=== PATIENT | female | born 1995 | race Caucasian/White ===

== ENCOUNTER 2022-08-30 08:30 | Outpatient (RCR) | payer MEDICAID, SELFPAY | END 2022-11-05 13:48 | disposition home or self-care (01) | DX: R10.2 Pelvic and perineal pain (principal); Z51.89 Encounter for other specified aftercare | CPT/HCPCS: 97110; 97140; 97162 ==

== ENCOUNTER 2023-06-25 17:11 | Outpatient (CLI) | payer MEDICAID, SELFPAY | END 2023-06-25 17:12 | disposition home or self-care (01) | LOC: NFLDREF 06-26 07:18 | PROVIDERS: PCP Registered Nurse; Visit Provider Registered Nurse | DX: Z34.82 Encounter for supervision of other normal pregnancy, second trimester (principal) | CPT/HCPCS: 87086 ==

== ENCOUNTER 2023-06-27 15:38 | Outpatient (CLI) | payer MEDICAID, SELFPAY ==
--- NOTE | 2023-06-27 16:00 | US_ITS ---
Patient: SHAYNE AMAYA Facility:?[facility] Patient ID:?[id number] Site Patient ID:?[id number]. Site :?[id number] Study:?US-OB Pelvis OB ANATOMY-06/27/2023 5:01:06 PM Ordering Physician:?YUDITH MAZARIEGOS CNP Final Report: HISTORY: anatomic survey. COMPARISON: None available of this gestation. TECHNIQUE: Ultrasound examination of the is performed with transabdominal technique. FINDINGS: A single intrauterine gestation is seen in cephalic presentation with regular cardiac activity at 152 beats per minute. The placenta is anterior and to the right and is free of the cervical os. The placental grade is 0 and the amniotic fluid volume is normal. Single deepest vertical pocket: Normal at 6.8 cm. Cervical length normal at 4.9 centimeters. BPD: 5.5 cm 22 weeks 5 days HC: 19.7 cm 22 weeks 6 days AC: 18.3 cm 23 weeks 1 day FL: 3.7 cm 21 weeks 4 days The estimated age by ultrasound is 22 weeks 2 days, with an estimated date of delivery of 10/29/2023. This correlates relatively well with the clinical age of 20 weeks 4 days. The ultrasound measurements are internally consistent, suggesting that the clinical age may be inaccurate. The ultrasound ratios are normal. The estimated weight is 500 grams which is greater than the 97th percentile based on the clinical dates. The anatomic survey demonstrates normal appearing intracranial structures with a normal septum pellucidum and normal cerebellum. The nuchal thickness is normal at 5 mm, and the lateral ventricle is normal in diameter at 4 mm. The upper lip, 4 chamber heart, left and right ventricular outflow tracts, diaphragm, stomach, cord insertion site, 3-vessel cord, kidneys, bladder and spine are normal in appearance. IMPRESSION: 1. Single intrauterine gestation in cephalic presentation with regular cardiac activity. 2. Estimated gestational age is 22 weeks 2 days. 3. Estimated weight is 500 grams which is greater than the 97th percentile based on the clinical dates. Dictated by Mick Chiang MD @ 06/30/2023 10:57:16 AM Signed by:?Mick Chiang MD @06/30/2023 10:57:16 AM (Electronic Signature)
== END 2023-06-27 15:39 | disposition home or self-care (01) ==
LOC: US 15:38
PROVIDERS: Visit Provider Registered Nurse
DX: Z34.92 Encounter for supervision of normal pregnancy, unspecified, second trimester (principal); Z3A.22 22 weeks gestation of pregnancy
CPT/HCPCS: 76805

== ENCOUNTER 2023-08-20 08:00 | Outpatient (CLI) | payer MEDICAID, SELFPAY | END 2023-08-20 08:01 | disposition home or self-care (01) | LOC: NFLDREF 09-09 16:43 | PROVIDERS: Visit Provider Advanced Practice Midwife | DX: Z34.92 Encounter for supervision of normal pregnancy, unspecified, second trimester (principal) | CPT/HCPCS: 86592; 86762 ==

== ENCOUNTER 2023-09-17 13:41 | Outpatient (CLI) | payer MEDICAID, SELFPAY ==
--- NOTE | 2023-09-17 14:00 | CRLHL7_ITS ---
For Patients: As a result of the Century Cures Act, medical imaging exams and procedure reports are released immediately into your electronic medical record. You may view this report before your referring provider. If you have questions, please contact your health care provider. OB ULTRASOUND 09/17/2023 CLINICAL HISTORY: Growth, history of macrosomia. RAFAEL by LMP: 11/10/2023. GA: 32 weeks 2 days. COMPARISON: 06/27/23, 04/30/23, 04/24/23. TECHNIQUE: Transabdominal. FINDINGS: Single gestation. Cervix: Not visualized. Position: Vertex. Amniotic Fluid: 7.2 cm. Placenta: TA Placenta Position: Anterior, right wall. Dopplers: Heart Rate: 150 bpm. BIOMETRY: BPD: 8.8 cm, 35 weeks 3 days. >97% HC: 31.6 cm, 35 weeks 3 days. 90% AC: 33.3 cm, 37 weeks 2 days. 97% FL: 6.9 cm, 35 weeks 4 days. >97% EFW: 2933 grams, 6 lb, 7 oz. Age by this US: 36 weeks 0 days. RAFAEL by this US: 10/15/2023. Percentile by RAFAEL: >97% IMPRESSION: Estimated weight is greater than 97th percentile. Víctor Regalado M.D. Body/Diagnostic Radiologist [email or web address] Transcribed: 1:19 pm DW/Dictated by: Víctor Regalado MD @ 09/18/2023 10:16:00 AM (Electronically Signed)
== END 2023-09-17 13:42 | disposition home or self-care (01) ==
LOC: US 13:42
PROVIDERS: Visit Provider Advanced Practice Midwife
DX: O36.63X0 Maternal care for excessive fetal growth, third trimester, not applicable or unspecified (principal); Z3A.32 32 weeks gestation of pregnancy
CPT/HCPCS: 76816

== ENCOUNTER 2023-10-02 10:26 | Outpatient (CLI) | payer MEDICAID, SELFPAY ==
[2023-10-03 13:36] LABS: Strep B DNA Probe Negative (Negative)
[2023-10-03 13:59] LABS: Strep B Susceptibility Needed? No
== END 2023-10-02 10:27 | disposition home or self-care (01) ==
PROVIDERS: Visit Provider Advanced Practice Midwife
DX: Z34.93 Encounter for supervision of normal pregnancy, unspecified, third trimester (principal); Z3A.34 34 weeks gestation of pregnancy; R82.90 Unspecified abnormal findings in urine
CPT/HCPCS: 82728; 87081; 87086; 87653

== ENCOUNTER 2023-10-07 10:59 | Outpatient (CLI) | payer MEDICAID, SELFPAY ==
[2023-10-07 11:04] VITALS: BP 105/60; PULSE 85; RESP 16; TEMP 36.6
[2023-10-07 11:43] LABS: Appearance Urine Clear (Clear); Bilirubin Urine Negative (Negative); Blood Urine Negative (Negative); Color Urine Yellow (Yellow); Glucose Urine 1+ (Negative); Ketones Urine Negative (Negative); Leukocyte Esterase Urine 1+ (Negative); Nitrite Urine Negative (Negative); Protein Urine Negative (Negative); Specific Gravity Urine 1.025 (1.000-1.030); Urobilinogen Urine 0.2 (0.2-1.0)
[2023-10-07 11:49] LABS: Amnisure Rom* Negative
[2023-10-07 11:53] LABS: Clue Cells No Clue Cells Seen (None Seen); Trichomonas No Trichomonas Seen (None Seen); Yeast No Yeast Seen (None Seen)
[2023-10-07 12:04] LABS: Bacteria Urine Many; RBC Urine 0-2 (0-2); Squamous Epithelial Cell Urine Moderate (None-Few)
--- NOTE | 2023-10-07 12:44 | PC.OBNST ---
NST Note NST Note Start: 10/07/23 11:07 Freq: ONCE Status: Active Protocol: Document 10/07/23 12:42 ARIES (Rec: 10/07/23 12:43 ARIES [id number]) NST Note 5 Para (# of births) 4 EDC 11/10/23 Gestational Age In Weeks & Days 35 Weeks & 1 Days High Risk Factors History of Labor/ Delivery Patient Presented with Complaint(s) of Pain If Pain, describe location Pelvic pain Reactive Yes Appropriate for Gestational Age Yes RN Yfn Li RN Date 10/07/23 Reactive Yes Appropriate for Gestational Age Yes RICK Chow RN Date 10/07/23 OB NST charge Yes Complete NST Note via Write Note Yes The provider's electronic signature indicates the NST is reactive/appropriate for gestational age. *Note to provider: If an addendum is required, open the patient's chart and click on the note under the Nurse/Allied Health tab.
--- NOTE | 2023-10-07 12:55 | P.OBO_ITS ---
OB Outpatient HPI History of Present Illness History of Present Illness: Romel is a 28 year old at 35.1 weeks gestation by LMP with an RAFAEL of 11/10/2023. She presents to triage with concerns for lower pubic pain that started a few days ago but has been progressively more painful since 2 am this morning. She feels it worse when she is up and moving but it has been hard to move in bed or get up. She has also noted some increased discharge but denies any bleeding. She still has irregular contractions but those are more tolerable today. She does wear an abdominal binder if she is up moving around a lot. She uses the birthing ball and has 4 other children at home keeping her busy. OB PROBLEM LIST G 5 P3104 at tx at 20 2/7 weeks gestation from [facility] 1. 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 Recommend FOB be tested. NIPT testing with [facility], viewed on pt phone all WNL FOB is not carrier. 2. Depression and Anxiety. Took medication in past. Stable without medication or therapist at OB transfer visit. 3. History of labor. Fourth baby delivered at 36 weeks 2 days. Patient believes that her dating may have been off. Per delivery note, dating was based on ultrasound. (doesn't list how far along she was at time of dating US). Pt reports her dates were changed almost 4 weeks by her OB. 4. History of anorexia. Patient states this was an issue during her 3rd . Denies any current concerns with disordered eating habits. 5. UTI in . Neg culture at tx visit. 6. H/o macrosomia. Fourth baby was 9 lb 5 oz at 36 weeks 2 days. Consider growth US in 3rd trimester at 32-36 weeks. FAS: growth >97%. Growth US: 32 wks >97%, 36 wks: 7. Anemia in 10.5 at 28 weeks, oral iron supplement recommended TDAP: 09/03/2023 Covid: Not vaccinated. Recommended, declined. Previous medical records: Estimated date of delivery is 11/10/2023 determined by LMP consistent with 6 and 8 week ultrasound. Blood type O positive, antibody screen negative, hemoglobin 13.4, platelets 309, rubella: no results (Immune by our labs), RPR nonreactive, hepatitis-B nonreactive, HIV negative, Chlamydia gonorrhea both negative, urine culture enterococcus faecalis, hepatitis-C negative Pap smear 10/29/2022 negative for intraepithelial lesion or malignancy Spinal muscular atrophy carrier testing: Positive Ultrasound 04/01/2023: Single viable intrauterine gestation with crown-rump length measurements consistent with LMP and confirms EDC of 11/10/2023. Ultrasound 04/24/2023: Single live intrauterine with CRL of 5.03 corresponding to 11 weeks 3 days. Cardiac activity present 173 beats per minute. Appropriate growth since last ultrasound. Ultrasound 04/30/2023: Single IUP at 12 weeks 2 days. Appropriate growth since last ultrasound. Normal cardiac activity. Ovaries normal in appearance and size. Normal blood flow to left ovary. Baby moving naturally: Yes Bleeding: No Contractions: Yes Leaking fluid: No (Increased but not watery) Discharge: Yes Heartburn: No Back pain: No Meds Home Medications and Allergies Home Medications ?Medication ?Instructions ?Recorded ?Confirmed ?Type docosahexaenoic acid 200 mg mg PO 06/25/23 10/02/23 History capsule ( DHA) Allergies Allergy/AdvReac Type Severity Reaction Status Date / Time No Known Drug Allergies Allergy Verified 10/07/23 11:12 COUNT INCLUDES THE [facility] Medical History (Updated 10/07/23 @ 16:55 by Kaylah Hernandez CNM) labor in third trimester with delivery ?O60.14X0 - labor third trimester with delivery third trimester, not applicable or unspecified (ICD-10) Social History (Updated 06/25/23 @ 16:05 by Oralia Galeana MA) What is your current living situation?: I presently have a place to live Problems where you live: no known problems In the past 12 months, utilities in danger of being shut off: no In past 12 months, lack of transportation kept you from medical appts, meetings, work, or getting things needed for daily living: no In the past 12 mos, have been you worried that your food would run out before you had money to buy more?: never true In the past 12 mos, the food you bought just didn't last and you didn't have money to buy more?: never true Smoking Status: Never smoker How often does anyone, including family, friends and others, physically hurt you : never How often does anyone, including family, friends and others, insult or talk down to you: never How often does anyone, including family, friends and others, threaten you with harm: never How often does anyone, including family, friends and others, scream or curse at you: never Little interest or pleasure in doing things: not at all Feeling down, depressed, or hopeless: not at all History History 5 Elective abortions Para 4 Spontaneous abortions Hx # Term Pregnancies Ectopic pregnancies Hx # Pregnancies Multiple births Number of Living Children Past Pregnancies Del. Date GA/Weeks Outcome Route wt Inf Gender Labor Lgth Anesthesia Location Provider [facility] 03/23/13 39 live - full term 8 lb 11 oz Male [place] labor 07/09/16 39 live - full term 8 lb 13 oz Male [place] 01/17/19 37 live - full term 7 lb 9 oz Male epidural [facility] 10/07/21 36 live - 9 lb 5 oz Male [facility] labor Delivery Date: 10/07/21 Last Updated by: Kaylah Hernandez CNM GBS + OB - H&P: Exam Physical Exam Vital signs: Temp Pulse Resp BP 97.8 F 85 16 105/60 10/07/23 11:04 10/07/23 11:04 10/07/23 11:04 10/07/23 11:04 Labs Labs Laboratory Tests 10/07/23 10/07/23 10/07/23 Range/Units 11:33 11:30 11:29 Urine Color Yellow (Yellow) Urine Appearance Clear (Clear) Urine pH 6.0 (5.0-8.5) Ur Specific [place] 1.025 (1.000-1.030) Urine Protein Negative (Negative) Urine Glucose (UA) 1+ A (Negative) Urine Ketones Negative (Negative) Urine Blood Negative (Negative) Urine Nitrite Negative (Negative) Urine Bilirubin Negative (Negative) Urine Urobilinogen 0.2 (0.2-1.0) Ur Leukocyte Esterase 1+ A (Negative) Urine RBC 0-2 (0-2) Urine WBC 5-10 A (0-5) Ur Squamous Epith Cells Moderate A (None-Few) Urine Bacteria Many A (None) Membrane Rupture Negative Vaginal Trichomonas No Trichomonas Seen (None Seen) Vaginal Yeast No Yeast Seen (None Seen) Vaginal Clue Cells No Clue Cells Seen (None Seen) Assessment and Plan Assessment and plan (1) Pain in symphysis pubis during : Status: Acute (2) 35 weeks gestation of : Status: Acute Plan at 35 1/7 weeks gestation Symphysis Pubis pain Reviewed causes of symphysis pubis pain and management. Encouraged to wear abdominal binder when able, use pillow support in bed, turn slowly and support abdomen, heat therapy, cold therapy, tylenol as needed, tub soaks, and rest. Avoid squatting or birthing ball for a period to see if this helps alleviate pain on symphysis pubis. Avoid activities that make pain worse. Wet prep negative. Reviewed UA is similar to last week in clinic. Will call and treat if culture returns with infection. Reviewed s/sx of labor and when to return for care. Has return OB tomorrow. She may cancel depending on how she is feeling in the morning. She is aware to return next week if she does. Discharge home.
== END 2023-10-07 12:41 | disposition home or self-care (01) ==
LOC: OB OUT 10:59 → OB 11:04
PROVIDERS: Visit Provider Advanced Practice Midwife
DX: O09.213 Supervision of pregnancy with history of pre-term labor, third trimester (principal); O99.891 Other specified diseases and conditions complicating pregnancy; R10.2 Pelvic and perineal pain; Z3A.35 35 weeks gestation of pregnancy
CPT/HCPCS: 59025; 81001; 81003; 84112; 87086; 87210; G0463

== ENCOUNTER 2023-10-11 21:57 | Outpatient (CLI) | payer MEDICAID, SELFPAY ==
[2023-10-11 22:08] VITALS: BP 118/60; PULSE 90; PULSE 95; O2SAT 98
--- NOTE | 2023-10-12 01:31 | PC.OBNST ---
NST Note NST Note Start: 10/11/23 22:13 Freq: ONCE Status: Active Protocol: Document 10/12/23 01:10 KERRY (Rec: 10/12/23 01:31 KERRY [id number]) NST Note 5 Para (# of births) 4 EDC 11/10/23 Gestational Age In Weeks & Days 35 Weeks & 6 Days High Risk Factors History of Labor/ Delivery Patient Presented with Complaint(s) of Contractions/cramping Reactive Yes Appropriate for Gestational Age Yes RICK Arizmendi RNC Date 10/12/23 Reactive Yes Appropriate for Gestational Age Yes RICK Lomas RN Date 10/12/23 OB NST charge Yes Complete NST Note via Write Note Yes The provider's electronic signature indicates the NST is reactive/appropriate for gestational age. *Note to provider: If an addendum is required, open the patient's chart and click on the note under the Nurse/Allied Health tab.
== END 2023-10-12 01:10 | disposition home or self-care (01) ==
LOC: OB OUT 21:57 → OB 21:58
PROVIDERS: Visit Provider Obstetrics & Gynecology
DX: O47.03 False labor before 37 completed weeks of gestation, third trimester (principal); Z3A.35 35 weeks gestation of pregnancy
CPT/HCPCS: 59025; G0463

== ENCOUNTER 2023-10-14 08:42 | Outpatient (CLI) | payer MEDICAID, SELFPAY ==
--- NOTE | 2023-10-14 09:15 | US_ITS ---
Patient: SHAYNE AMAYA Facility:?[facility] Patient ID:?[id number] Site Patient ID:?[id number]. Site :?1997 Study:?US-OB Pelvis growth-10/14/2023 9:21:53 AM Ordering Physician:Sathish Pham Final Report: INDICATION: Third trimester scan, evaluate growth. COMPARISON: 09/17/2023 TECHNIQUE: Real time tamez scale imaging of the fetus was performed. FINDINGS: Sonographic imaging demonstrates a single living intrauterine gestation. Fetus demonstrates a regular cardiac rate of 159 beats per minute. Fetus has a vertex position. The placenta lies anteriorly. Amniotic fluid volume appears normal and there is a single deepest vertical pocket: 7.6 cm. The estimated weight is 3748gm which lies at the greater than 97th %. On the prior OB ultrasound exam dated 09/17/2023 the estimated weight was at the greater than 97th%. BPD and HC greater than 97th percentile. HC 93rd percentile. FL 80th percentile. The HC/AC ratio measures 0.95 range (0.87-1.06). IMPRESSION: Sonographic gestational age 39 weeks 1 day and sonographic due date of 10/20/2023. Sonographic age 3 weeks ahead of the clinical age. Estimated weight greater than 97th percentile. Abdominal circumference and BPP greater than 97th percentile. Dictated by Nathan Soares MD @ 10/14/2023 11:09:06 AM Signed by:?Nathan Soares MD @10/14/2023 11:09:06 AM (Electronic Signature)
== END 2023-10-14 08:43 | disposition home or self-care (01) ==
LOC: US 08:42
PROVIDERS: Visit Provider Advanced Practice Midwife
DX: Z34.93 Encounter for supervision of normal pregnancy, unspecified, third trimester (principal); Z3A.39 39 weeks gestation of pregnancy
CPT/HCPCS: 76816

== ENCOUNTER 2023-10-22 10:50 | Outpatient (CLI) | payer MEDICAID, SELFPAY | END 2023-10-22 10:51 | disposition home or self-care (01) | LOC: NFLDREF 10-23 10:39 | PROVIDERS: Visit Provider Midwife | DX: O99.013 Anemia complicating pregnancy, third trimester (principal); Z3A.37 37 weeks gestation of pregnancy | CPT/HCPCS: 82728 ==

== ENCOUNTER 2023-11-04 09:52 | Inpatient (IN) | payer MEDICAID, SELFPAY ==
[2023-11-04] VITALS (14 sets, daily range): BP systolic 107–123; BP diastolic 54–70; PULSE 74–96; TEMP 36.4–36.8; BMI 34.6
--- NOTE | 2023-11-04 12:17 | P.LDBA_ITS ---
Subjective History of Present Illness Narrative: Romel is a 28 yo at 39 1/7 weeks gestation being admitted to Labor and Delivery for elective induction of labor. She reports she has been having contrations on and off for the last week but isn't feeling many today. She denies any bleeding or leaking of fluid. She is supported in labor by her partner, Alexandra. Her full history and physical was dictated by JIM Patterson on 10/14/2023. Please see this for details. Specific Issues/Plans G 5 P3104 at tx at 20 2/7 weeks gestation from [place]. H&P 10/14/23 Jack Thomas CNM IOL 11/03 at 0700. [place] consent signed 10/22/2023 1. 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 Recommend FOB be tested. NIPT testing with [facility], viewed on pt phone all WNL FOB is not carrier. 2. Depression and Anxiety. Took medication in past. Stable without medication or therapist at OB transfer visit. 3. History of labor. Fourth baby delivered at 36 weeks 2 days. Patient believes that her dating may have been off. Per delivery note, dating was based on ultrasound. (doesn't list how far along she was at time of dating US). Pt reports her dates were changed almost 4 weeks by her OB. 4. History of anorexia. Patient states this was an issue during her 3rd . Denies any current concerns with disordered eating habits. 5. UTI in . Neg culture at tx visit. 6. H/o macrosomia. Fourth baby was 9 lb 5 oz at 36 weeks 2 days. Consider growth US in 3rd trimester at 32-36 weeks. FAS: growth >97%. Growth US: 32 wks >97%, 36 wks: >97% 7. Anemia in 10.5 at 28 weeks, oral iron supplement recommended 10/22/2023 Hgb: 10.7 TDAP: 09/03/2023 Covid: Not vaccinated. Recommended, declined. Previous medical records: Estimated date of delivery is 11/10/2023 determined by LMP consistent with 6 and 8 week ultrasound. Blood type O positive, antibody screen negative, hemoglobin 13.4, platelets 309, rubella: no results (Immune by our labs), RPR nonreactive, hepatitis-B nonreact kortney, HIV negative, Chlamydia gonorrhea both negative, urine culture enterococcus faecalis, hepatitis-C negative Pap smear 10/29/2022 negative for intraepithelial lesion or malignancy Spinal muscular atrophy carrier testing: Positive Ultrasound 04/01/2023: Single viable intrauterine gestation with crown-rump length measurements consistent with LMP and confirms EDC of 11/10/2023. Ultrasound 04/24/2023: Single live intrauterine with CRL of 5.03 corresponding to 11 weeks 3 days. Cardiac activity present 173 beats per minute. Appropriate growth since last ultrasound. Ultrasound 04/30/2023: Single IUP at 12 weeks 2 days. Appropriate growth since last ultrasound. Normal cardiac activity. Ovaries normal in appearance and size. Normal blood flow to left ovary. OB - Problem Based A/P Additional Plan (1) Encounter for elective induction of labor: Status: Acute (2) 39 weeks gestation of : Status: Acute (3) Anemia affecting in third trimester: Status: Acute (4) History of macrosomia in in prior , currently : Status: Acute (5) Depression: Status: Acute Plan ASSESSMENT:? 28 yo at 39.1 weeks gestation? complicated by:?SMA carrier, Depression/Anxiety, hx of labor, hx of anorexia, UTI in , Hx of macrosomia, Anemia Labor type: Induced? Category 1 FHR pattern.?? Labor complicated by: none? GBS negative? ? PLAN:? 1. Routine intrapartum cares as ordered. Discussed induction methods based on her cervical exam including pitocin versus AROM. We reviewed risk/benefits of each. If she desires AROM first and she is not progressing we can start Pitocin at any point. We discussed I would not rupture if I did not feel this was a safe option. This is what she prefers. AROM with clear fluid. 2. Monitoring per policy, intermittent unless on pitocin? 3. Planning unmedicated . Desires water . Consent signed. Hep C negative. Candidate for analgesia of choice.?? 4. Patient encouraged to reposition and ambulate to promote physiologic labor and .? 5. Anticipate ? Delivery/Labor/Induction Plan Plan: induction Induction method: AROM OB Result Labs Blood Type: O (+) positive GBS Status: negative OB Exam Physical Exam Vital signs: Temperature 98.3 F 11/04/23 13:27 Pulse Rate 96 11/04/23 13:27 Blood Pressure 107/54 L 08/12/24 13:27 Blood Pressure Mean 74 11/04/23 13:27 Narrative: Vitals Reviewed Constitutional:? Alert and oriented x3 HEENT:? Normocephalic, atraumatic Neck:? Supple Lungs:? Clear to auscultation bilaterally Heart:? Regular rate and rhythm, no murmur, rub or gallop Abdomen:? Soft, nontender, and gravid. Vertex by Michael's, confirmed with cervical exam. Extremities:? No edema or erythema Cervix: 5 cm/70%/-2 station/vertex; Arom with clear fluid NST: 150 bpm/moderate variability/15x15 accelerations/no decelerations/contractions rarely Detailed Labor and Delivery Exam Patient Gravid: Yes
--- NOTE | 2023-11-04 18:41 | PM.OBPNL ---
Subjective Date Seen: 11/04/23 Narrative: Romel is a at 39.1 weeks gestation here for elective IOL. She is starting to feel some pressure and desires to get into the tub. She is supported in labor by her partner. Objective Exam: Objective: Constitutional: Alert and oriented x3, mild distress, coping well Vital signs stable, see nurse documentation Abdomen: gravid, contractions palpate strong with contractions and soft between Cervix: 8-9 cm/90%/0 station/vertex Intermittent Auscultation: FHR 150's Vital Signs: Last Vital Signs Temp 98.1 F 11/04/23 18:06 Pulse 86 11/04/23 18:07 BP 119/66 11/04/23 18:07 Plan Plan: 28 yo at 39.1 weeks gestation? complicated by:?SMA carrier, Depression/Anxiety, hx of labor, hx of anorexia, UTI in , Hx of macrosomia, Anemia Labor type: Induced, Active labor Labor complicated by: none? GBS negative? Reassuring status via Intermittent Auscultation ? PLAN:? 1. Routine intrapartum cares as ordered. Expectant management. 2. Monitoring per policy, intermittent 3. Planning unmedicated . Desires water , planning to enter the tub. Consent signed. Hep C negative. 4. Patient encouraged to reposition and ambulate to promote physiologic labor and .? 5. Anticipate ?
[2023-11-04] MEDS: OXYTOCIN 10 UNIT/ML INJ IM (19:15)
--- NOTE | 2023-11-04 19:38 | W.PM.OBVAGDE ---
OB Procedure Vag Delivery Mother Details Mother Details: The patient is a 28 year-old, 5, now Para 5, admitted on 11/04/23 at 39.1 weeks gestation. : 5 Para: 5 Weeks Gestation: 39.1 Admission Date: 11/04/23 Additional Details Amniotic Membrane Status: AROM Amniotic Membrane Rupture Date: 11/04/23 Amniotic Membrane Rupture Time: 11:10 Amniotic Membrane Fluid Description: Clear Analgesia/Anesthesia Type: None Waterbirth: Yes Pitcoin: Yes ([facility] only) Labor Onset: 15:30 Complete: 18:46 Pushin:46 Heart: heart tones during second stage were intermittently auscultated with reassuring status. Delivery Details Delivery Date: 11/04/23 Delivery Time: 19:00 Route of delivery: Infant Gender: Male Infant Viability: Alive; Heart Rate Present Position at Delivery: OA Delivery Details: Patient was admitted for elective induction of labor. Patients labor was started with AROM of clear fluid at 1110 am and expectantly managed. She labored with movement, coping well. She elected to enter the tub at 8-9 cms. She progressed normally to complete assumed with pushing at 1846. of a viable male at 1900 in semi-reclined in the tub. Vertex delivered OA. Nuchal cord easily reduced at perineum. No shoulder. Body delivered easily and without incident. passed to mothers abdomen with a vigorous cry. Cord was clamped and cut at > 5 minutes. Patient was escorted out of the tub with some concern for bleeding in the tub. APGARS were 7 at one minute and 8 at five minutes respectively. Mouth was bulb suctioned. Intact placenta with a 3 vessel cord delivered spontaneously at 1913. Fundus firm. Intact perineum. QBL 200 cc + 400 EBL in the tub, total 600 cc. Bleeding resolved with delivery of placenta. IM pitocin given. Mother and baby stable; mother plans to breastfeed. weight 9lb 10 oz. 1 Minute Interval Total Score: 7 5 Minute Interval Total Score: 8 Additional Details Shoulder Dystocia: No Placenta Delivery Time: 19:13 Placental Delivery Description: Spontaneous Procedure Done: Global Blood Loss: 600 Laceration: None Blood Loss Measurement Type: QBL (+ EBL in tub) Sponge/Need Count Correct: Yes Cord Vessel Description: 3 Vessels, Nuchal Cord, Loose and Reduced Event Summary Status: Mother and infant were stable after delivery. Disposition: floor
[2023-11-05 00:15] VITALS: BP 109/70; PULSE 88; RESP 16; TEMP 36.8; O2SAT 97
[2023-11-05 05:21] VITALS: BP 108/72; PULSE 93; RESP 16; TEMP 36.8; O2SAT 97
[2023-11-05 06:38] LABS: Hemoglobin* 9.2 gm/dL (12.0-16.0)
[2023-11-05] MEDS: DOCUSATE SODIUM 100 MG CAPSULE PO (08:52)
[2023-11-05] MEDS: IBUPROFEN 600 MG TABLET PO ×2 (08:52→15:39)
[2023-11-05 09:00] VITALS: BP 123/73; PULSE 83; RESP 16; TEMP 36.4; O2SAT 98
--- NOTE | 2023-11-05 09:28 | PM.OBDSVD1 ---
DS: Providers Provider Date Seen: 11/05/23 Date of admission: 11/04/23 09:52 Primary care physician: Not a Local Provider Admitting Clinician: Kaylah Hernandez CNM Attending Physician on discharge: Vero Medrano CNM Date of Discharge: 11/05/23 DS: Diagnosis Discharge Diagnosis (1) care and examination immediately after delivery: Status: Acute Exam Narrative: Exam Narrative: VSS, afebrile GENERAL APPEARANCE: ?normal affect, alert, no distress MOOD: ?appropriate HEENT: normocephalic, neck supple, full ROM CHEST: ?Symmetrical chest wall movement. ?Normal respiratory effort. ?Clear to auscultation HEART: ?regular rate and rhythm ABDOMEN: ?soft, non-tender. Uterine fundus is firm, at Umbilicus, Midline and is appropriate for the stage of recovery. ?Bowel sounds present. PERINEUM: ?intact .EXTREMITIES: ?normal and no edema Const: Vital Signs, click to edit/add: Vital Signs - 24 hr 11/04/23 10:47 11/04/23 13:27 11/04/23 13:27 Temperature 98.1 F 98.3 F Pulse Rate 96 Pulse Rate [Pulse Oximeter] Respiratory Rate Blood Pressure 107/54 L Blood Pressure [Le ft Arm] [facility]/23 14:45 11/04/23 14:45 11/04/23 15:46 Temperature 97.5 F L Pulse Rate 93 86 Pulse Rate [Pulse Oximeter] Respiratory Rate Blood Pressure 123/61 116/55 L Blood Pressure [Le ft Arm] Pulse Oximetry [facility] 11/04/23 15:46 11/04/23 16:54 11/04/23 16:54 Temperature 98.2 F 98.2 F Pulse Rate 94 Pulse Rate [Pulse Oximeter] Respiratory Rate Blood Pressure 118/70 Blood Pressure [Le ft Arm] Pulse Oximetry [facility] 11/04/23 18:06 11/04/23 18:07 11/04/23 19:32 Temperature 98.1 F Pulse Rate 86 90 Pulse Rate [Pulse Oximeter] Respiratory Rate Blood Pressure 119/66 108/61 Blood Pressure [Le ft Arm] Pulse Oximetry [facility] 11/04/23 19:46 11/04/23 20:01 11/04/23 20:17 Temperature Pulse Rate 85 74 93 Pulse Rate [Pulse Oximeter] Respiratory Rate Blood Pressure 114/63 118/63 118/66 Blood Pressure [Le ft Arm] Pulse Oximetry Oxygen Delivery Me thod 11/04/23 20:31 11/04/23 20:46 11/04/23 21:01 Temperature Pulse Rate 94 83 88 Pulse Rate [Pulse Oximeter] Respiratory Rate Blood Pressure 108/58 L 117/58 L 117/60 Blood Pressure [Le ft Arm] Pulse Oximetry Oxygen Delivery Me thod 11/05/23 00:15 11/05/23 05:21 Temperature 98.2 F 98.2 F Pulse Rate Pulse Rate [Pulse Oximeter] 88 93 Respiratory Rate 16 16 Blood Pressure Blood Pressure [Le ft Arm] 109/70 108/72 Pulse Oximetry 97 97 Oxygen Delivery Me thod Room Air Room Air Documenting provider has reviewed patient's vital signs: yes OB - DS: Summary Hospital Course Hospital Course: Romel is a 28 y.o. who was admitted to [facility] for elective induction of labor at 39.1 weeks. ?She had an uncomplicated NVD.?The patient feels well. ?The pain is well controlled with current medications. ?She has no new complaints. ?She is bottle feeding and reports things are going well.? the patient has done well.? Vitals have been stable.? She has remained afebrile.? Has a good appetite, is tolerating a general diet. ?She is voiding without difficulty.? She is passing gas and has had a bowel movement.? She is ambulating and denies any dizziness.? Has Small amount of rubra lochia. ?She is planning Kyleena IUD for prevention. Peripartum Data delivery method: Vaginal Laceration description: None complications: none Infant Gender: Male Infant Discharge Plan: Home Status at Discharge Functional status at discharge: independent ambulation Overall status at discharge: patient is progressing back to baseline Time Spent with Patient Time attestation: Total time spent providing and/or coordinating discharge services: Time spent: Less than 30 minutes Discharge Plan Discharge Disposition: Home, Self-Care Date of Admission: 11/04/23 09:52 Attending Provider on Discharge: Vero Medrano Primary Care Provider: Provider,Not a Local Condition: Stable Anticipated Discharge Date/Time: 11/05/23 20:00 Discharge Medications: New acetaminophen 500 mg Tablet 1,000 mg PO Q6H PRNQty: 0 0RF docusate sodium 100 mg Capsule 100 mg PO DAILY Qty: 90 2RF ibuprofen 600 mg Tablet 600 mg PO Q6H PRNQty: 60 0RF Continued DHA 200 mg capsule See Rx Instructions PO DAILY Rx Instructions: as directed orally daily; Changed ferrous sulfate [Feosol] 325 mg (65 mg iron) tablet 325 mg PO Q OTHER DAY Qty: 30 0RF Discharge Orders: Discharge Order (Routine); Ordered 11/05/23 Ordered By: Vero Medrano Patient Education: OB Over the Counter Medication Information, OB Vaginal/Bottle Feeding Additional Instructions: Discharge instructions were reviewed with the patient including signs and symptoms of infection and home going medications Nothing vaginally for 6 weeks: no tampons or intercourse Off Work or School for 6 weeks 2-week visit: discuss infant feeding concerns, review control options and screen for anxiety/depression. 6-week visit for an annual exam. consultation services are available to all mothers and babies for the first year after delivery.? To make an appointment, please call [phone]. Activity Level: Activity as Tolerated Discharge Diet: Regular Follow Up Appointments: [facility] [Provider Group] Provider,Not a Local [Primary Care Provider] - Forms: Vestor[facility] Info Instructions
[2023-11-05] MEDS: ACETAMINOPHEN 500 MG TABLET 1000 MG PO (11:46)
[2023-11-05 12:05] VITALS: BP 110/72; PULSE 94; RESP 16; TEMP 36.4; O2SAT 97
[2023-11-05 16:03] VITALS: BP 114/73; PULSE 93; RESP 16; TEMP 36.6; O2SAT 98
[2023-11-08 01:25] LABS: Rapid Plasma Reagin (RPR) Non Reactive (Non Reactive)
== END 2023-11-05 20:59 | disposition home or self-care (01) | DRG 807 ==
PROVIDERS: Admitting Provider Advanced Practice Midwife; Visit Provider Advanced Practice Midwife
DX: O99.02 Anemia complicating childbirth (principal); Z37.0 Single live birth; D64.9 Anemia, unspecified; O99.344 Other mental disorders complicating childbirth; F32.A Depression, unspecified; F41.9 Anxiety disorder, unspecified; Z14.8 Genetic carrier of other disease; Z3A.39 39 weeks gestation of pregnancy
CPT/HCPCS: 36415; 85018; 86592; A9270; J2590

== ENCOUNTER 2024-05-20 11:04 | Outpatient (CLI) | payer MEDICAID, SELFPAY | END 2024-05-20 11:05 | disposition home or self-care (01) | LOC: US 11:05 | PROVIDERS: Visit Provider Registered Nurse | DX: T83.32XA Displacement of intrauterine contraceptive device, initial encounter (principal) | CPT/HCPCS: 76830 ==

== ENCOUNTER 2025-02-16 09:56 | Outpatient (CLI) | payer MEDICAID, SELFPAY | END 2025-02-16 09:57 | disposition home or self-care (01) | PROVIDERS: PCP Family Medicine; Visit Provider Family Medicine | DX: Z13.1 Encounter for screening for diabetes mellitus (principal); Z13.6 Encounter for screening for cardiovascular disorders; R63.5 Abnormal weight gain | CPT/HCPCS: 80061; 82947; 84443 ==